=== PATIENT | female | born 1955 | race African-American/Black ===

== ENCOUNTER 2024-10-19 13:51 | Emergency (ER) | payer BC, OTHER | END 2024-10-19 16:09 | disposition home or self-care (01) | LOC: CSHERS 13:51 | DX: M53.3 Sacrococcygeal disorders, not elsewhere classified (principal); I10 Essential (primary) hypertension; W18.30XA Fall on same level, unspecified, initial encounter; Y93.89 Activity, other specified; Y92.69 Other specified industrial and construction area as the place of occurrence of the external cause | CPT/HCPCS: 99283 ==